=== PATIENT | female | born 1955 | race Caucasian/White ===

== ENCOUNTER → 2020-05-10 | Outpatient (CLI) | payer MEDICARE, BC ==
--- NOTE | 2020-05-10 12:59 | WOMENS IMAGING REPORT ---
EXAM DESCRIPTION: U/S ABDOMEN LIMITED IMAGES COMPLETED DATE/TIME: 05/10/2020 9:25 am REASON FOR STUDY: R94.5 ABNORMAL RESULTS OF LIVER FUNCTION STUDIES R94.5 ABNORMAL RESULTS OF LIVER FUNCTION STUDIES COMPARISON: None. TECHNIQUE: Dynamic and static grayscale images acquired of the abdomen and recorded on PACS. Additio nal selected color Doppler and spectral images recorded. LIMITATIONS: None. FINDINGS: PANCREAS: The visualized portions of the pancreatic head and body appear normal. The panc reatic tail is obscured by overlying bowel. LIVER: Increased echogenicity of the hepatic parenchyma associated with attenuation of the far field. LIVER VASCULATURE: Normal hepatopetal directional flow in the main portal vein. The hepatic veins ar e patent. GALLBLADDER: There are shadowing echogenic calculi within the gallbladder lumen. The gallbladder wal l is normal in thickness measuring 2.8 mm. There is no pericholecystic fluid. ULTRASOUND-DETECTED DELGADO'S SIGN: Negative. INTRAHEPATIC DUCTS AND COMMON DUCT: The common bile duct measures 3.1 mm in outer diameter. There is no dilatation of the intrahepatic ducts. INFERIOR VENA CAVA: Obscured by overlying bowel. AORTA: Obscured by overlying bowel. RIGHT KIDNEY: The right kidney measures 11.1 cm in length. There is no hydronephrosis. PERITONEAL AND RIGHT PLEURAL SPACE: No ascites or effusions. OTHER: No other findings. IMPRESSION: 1. Increased echogenicity of the hepatic parenchyma suggestive of underlying hepatic vale atosis. 2. Cholelithiasis without other associated findings to suggest an acute cholecystitis. 3. The pancreatic tail, IVC and abdominal aorta are obscured by overlying bowel. TECHNICAL DOCUMENTATION: JOB ID: [id number] [employer]- All Rights Reserved Reading location - IP/workstation name: [email or web address]
== END ==
LOC: WI 08:45
PROVIDERS: ATTEND Internal Medicine Gastroenterology
DX: R94.5 Abnormal results of liver function studies (principal); K80.20 Calculus of gallbladder without cholecystitis without obstruction
CPT/HCPCS: 76705